=== PATIENT | female | born 1950 | race Caucasian/White ===

== ENCOUNTER → 2018-02-18 | Outpatient (REF) | payer MEDICARE ==
[2018-02-18 13:24] LABS: BASO % 0.5 % (0.0-1.0); EOS # 0.4 10^3/uL (0.0-0.50); EOS % 6.6 % (0.0-3.0); HEMATOCRIT 34.7 % (36.0-47.0); HEMOGLOBIN 11.3 g/dl (12.0-15.5); IMMATURE GRANULOCYTE % 0.2 % (0-3.0); LYMPH # 1.5 10^3/uL (1.5-4.5); MEAN CORPUSCULAR HEMOGLOBIN 32.8 pg (27.0-33.0); MEAN CORPUSCULAR HGB CONC 32.6 g/dl (32.0-36.5); MEAN CORPUSCULAR VOLUME 100.9 fl (80.0-96.0); MONO # 0.7 10^3/uL (0.0-0.8); MONO % 10.8 % (0.0-5.0); NEUTROPHILS # 3.5 10^3/uL (1.8-7.7); NEUTROPHILS % 56.9 % (36.0-66.0); PLATELET COUNT, AUTOMATED 183 10^3/uL (150-450); RED BLOOD COUNT 3.44 10^6/uL (4.00-5.40); RED CELL DISTRIBUTION WIDTH 12.5 % (11.5-14.5); WHITE BLOOD COUNT 6.1 10^3/uL (4.0-10.0)
[2018-02-18 13:39] LABS: FOLATE 17.4 NG/ML (>5.4); VITAMIN B12 LEVEL 530 PG/ML (247-911)
[2018-02-18 13:46] LABS: ALBUMIN 3.8 GM/DL (3.2-5.2); ALBUMIN/GLOBULIN RATIO 1.31 (1.00-1.93); ALKALINE PHOSPHATASE 58 U/L (45-117); ALT/SGPT 14 U/L (12-78); ANION GAP 8 MEQ/L (8-16); AST/SGOT 17 U/L (7-37); BILIRUBIN,TOTAL 0.2 MG/DL (0.2-1.0); BLOOD UREA NITROGEN 11 MG/DL (7-18); CALCIUM LEVEL 8.6 MG/DL (8.8-10.2); CARBON DIOXIDE LEVEL 26 MEQ/L (21-32); CHLORIDE LEVEL 103 MEQ/L (98-107); CREATININE FOR GFR 0.72 MG/DL (0.55-1.30); GLOMERULAR FILTRATION RATE > 60.0 (>45); GLUCOSE, FASTING 100 MG/DL (70-100); RHEUMATOID FACTOR QUANT < 10.0 IU/ML (<15.0); SODIUM LEVEL 137 MEQ/L (136-145); TOTAL PROTEIN 6.7 GM/DL (6.4-8.2)
[2018-02-18 14:33] LABS: ERYTHROCYTE SEDIMENTATION RATE 18 mm/hr (0-30)
[2018-02-22 00:06] LABS: Lyme Disease IgG/IgM Antibodie <0.91 ISR (0.00-0.90); Lyme Disease IgM Ab Quantitati <0.80 index (0.00-0.79)
[2018-02-22 09:51] LABS: DRVV SCREEN 69.6 SEC
[2018-02-22 09:52] LABS: PTT LUPUS TYPE ANTICOAG SCREEN 1.6 (0-1.2)
[2018-02-22 10:04] LABS: DRVV CONFIRM 39.6 SEC
[2018-02-22 14:14] LABS: ANTI DOUBLE STRAND-DNA AB 2 IU/mL (0-9); ANTINUCLEAR ANTIBODIES DIRECT Positive (Negative); CERULOPLASMIN 29.6 mg/dL (19.0-39.0); COPPER PLASMA 126 ug/dL (72-166); LEAD BLOOD ADULT 1 ug/dL (0-19); MERCURY LEVEL None Detected ug/L (0.0-14.9); RNP ANTIBODIES <0.2 AI (0.0-0.9); SJOGREN'S ANTI SS-A <0.2 AI (0.0-0.9); SJOGREN'S ANTI SS-B 1.1 AI (0.0-0.9); SMITH ANTIBODIES <0.2 AI (0.0-0.9); VITAMIN B1 LEVEL WHOLE BLOOD 157.4 nmol/L (66.5-200.0); VITAMIN B6,PYRIDOXAL PHOSPHATE 13.9 ug/L (2.0-32.8); VITAMIN E(ALPHA TOCOPHEROL) 12.1 mg/L (9.0-29.0); VITAMIN E(GAMMA TOCOPHEROL) 1.9 mg/L (0.5-4.9)
== END ==
LOC: M LABNEURO 11:08
DX: R25.1 Tremor, unspecified (principal); Z13.88 Encounter for screening for disorder due to exposure to contaminants
CPT/HCPCS: 82525

== ENCOUNTER → 2020-12-04 | Outpatient (CLI) | payer MEDICARE ==
[~2020-12-04] MED LIST: ALBU8.5H; AMIT100T; BABY81CH; BENI20TA11; DULO1CAP5; HYDR-3490; LEVO137T2; LEVO75TA2; LIPI10TA; LIPI20TA; LISI20TA5; LISI40TA4; OMEP-221; ONDA-1; PERC7.5T8; SIMV20TA22; SULF500T2; SULF50TA; ZEGERID; [UNRECOGNIZED DRUG - CODE]
== END ==
LOC: M LABSMTC 12:54
PROVIDERS: ATTEND Anesthesiology
DX: Z20.828 Contact with and (suspected) exposure to other viral communicable diseases (principal)

== ENCOUNTER 2020-12-09 10:46 | Day surgery (SDC) | payer MEDICARE ==
[~2020-12-09] VITALS: Ht 158.8 cm; Wt 91.2 kg
[~2020-12-09 10:46] MED LIST changes: +NS 1,000 ML IV ONE
[2020-12-09] MEDS ORDERED: CALCTAB89 PO (11:46)
[2020-12-09] MEDS ORDERED: VITA500C24 PO (11:46)
[2020-12-09] MEDS ORDERED: GARL1000 PO (11:46)
[2020-12-09] MEDS ORDERED: VITMTA PO (11:46)
--- NOTE | 2020-12-09 12:13 | ROOR ---
Patient Name: Vy Shetty Procedure Date: 12/09/2020 11:59 AM Date of : 1950 Age: 70 Room: [facility] Gender: Female Note Status: Finalized Procedure: Upper Endoscopy + Biopsies Indications: Heartburn, Exclusion of Salas's esophagus Providers: Lit Damon MD Referring MD: Haleigh Gomez Requestluis Provider: Medicines: Monitored Anesthesia Care Complications: No immediate complications. Procedure: Pre-Anesthesia Assessment: - The heart rate, respiratory rate, oxygen saturations, blood pressure, adequacy of pulmonary ventilation, and response to care were monitored throughout the procedure. The Endoscope was introduced through the mouth, and advanced to the second part of duodenum. The upper GI endoscopy was accomplished without difficulty. The patient tolerated the procedure well. Findings: The Z-line was irregular and was found 35 cm from the incisors. Multiple biopsies were obtained with cold forceps for evaluation to rule out Salas's Esophagus randomly at the gastroesophageal junction. A small hiatal hernia was present. Localized mildly erythematous mucosa without bleeding was found in the gastric antrum. Biopsies were taken with a cold forceps for Helicobacter pylori testing. The exam of the duodenum was otherwise normal. Impression: - Z-line irregular, 35 cm from the incisors. - Small hiatal hernia. - Erythematous mucosa in the antrum. Biopsied. - Multiple biopsies were obtained at the gastroesophageal junction. - The examination was otherwise normal. Recommendation: - Patient has a contact number available for emergencies. The signs and symptoms of potential delayed complications were discussed with the patient. Return to normal activities tomorrow. Written discharge instructions were provided to the patient. - High fiber diet. - Discharge patient to home. - Follow an antireflux regimen. - Continue present medications. - Await pathology results. - Telephone GI clinic for pathology results in 1 week. - Return to referring physician. - The findings and recommendations were discussed with the patient. Procedure Code(s): --- Professional --- 51984, Esophagogastroduodenoscopy, flexible, transoral; with biopsy, single or multiple Diagnosis Code(s): --- Professional --- K22.8, Other specified diseases of esophagus K44.9, Diaphragmatic hernia without obstruction or gangrene K31.89, Other diseases of stomach and duodenum R12, Heartburn CPT copyright 2019 [employer]. All rights reserved. The codes documented in this report are preliminary and upon power generation plant operator review may be revised to meet current compliance requirements. Lit Damon MD Lit Damon MD 12/09/2020 12:13:13 PM Electronically signed by Lit Damon MD Number of Addenda: 0 Note Initiated On: 12/09/2020 11:59 AM Estimated Blood Loss: Estimated blood loss: none.
--- NOTE | 2020-12-09 12:28 | ROOR ---
Patient Name: Vy Shetty Procedure Date: 12/09/2020 12:01 PM Date of : 1950 Age: 70 Room: [id number] Gender: Female Note Status: Finalized Procedure: Total Colonoscopy to Cecum Indications: Colon cancer screening in patient at increased risk: Colorectal cancer in father Providers: Lit Damon MD Referring MD: Haleigh Gomez Requesting Provider: Medicines: Monitored Anesthesia Care Complications: No immediate complications. Procedure: Pre-Anesthesia Assessment: - The heart rate, respiratory rate, oxygen saturations, blood pressure, adequacy of pulmonary ventilation, and response to care were monitored throughout the procedure. The Colonoscope was introduced through the anus and advanced to the cecum, identified by appendiceal orifice and ileocecal valve. The colonoscopy was performed without difficulty. The patient tolerated the procedure well. The quality of the bowel preparation was good. Findings: The perianal and digital rectal examinations were normal. Non-bleeding internal hemorrhoids were found during retroflexion. The hemorrhoids were small and Grade I (internal hemorrhoids that do not prolapse). No other significant abnormalities were identified in a careful examination of the remainder of the colon. The exam was otherwise without abnormality on direct and retroflexion views. Impression: - Non-bleeding internal hemorrhoids. - The examination was otherwise normal on direct and retroflexion views. - No specimens collected. - The exam was otherwise normal to the cecum. Recommendation: - Patient has a contact number available for emergencies. The signs and symptoms of potential delayed complications were discussed with the patient. Return to normal activities tomorrow. Written discharge instructions were provided to the patient. - High fiber diet. - Discharge patient to home. - Continue present medications. - Await pathology results. - Telephone GI clinic for pathology results in 1 week. - Return to referring physician. - Repeat colonoscopy in 5 years for screening purposes. - The findings and recommendations were discussed with the patient. Procedure Code(s): --- Professional --- 76515, Colonoscopy, flexible; diagnostic, including collection of specimen(s) by brushing or washing, when performed (separate procedure) Diagnosis Code(s): --- Professional --- Z80.0, Family history of malignant neoplasm of digestive organs K64.0, First degree hemorrhoids CPT copyright 2019 [employer] [place] [employer]. All rights reserved. The codes documented in this report are preliminary and upon retort furnace helper review may be revised to meet current compliance requirements. Lit Damon MD Lit Damon MD 12/09/2020 12:27:39 PM Electronically signed by Lit Damon MD Number of Addenda: 0 Note Initiated On: 12/09/2020 12:01 PM Estimated Blood Loss: Estimated blood loss: none.
[2020-12-09 12:55] VITALS: BP 133/72
[2020-12-09] MEDS ORDERED: NS 1,000 ML IV ONE (13:15)
== END 2020-12-09 13:06 | disposition home or self-care (01) ==
LOC: M OPP 10:46
PROVIDERS: ATTEND Internal Medicine Gastroenterology
DX: Z12.11 Encounter for screening for malignant neoplasm of colon (principal); Z80.0 Family history of malignant neoplasm of digestive organs; R12 Heartburn; K64.0 First degree hemorrhoids; D13.1 Benign neoplasm of stomach; K44.9 Diaphragmatic hernia without obstruction or gangrene; K22.8 Other specified diseases of esophagus; K31.89 Other diseases of stomach and duodenum; I10 Essential (primary) hypertension; E03.9 Hypothyroidism, unspecified; M19.90 Unspecified osteoarthritis, unspecified site; F41.9 Anxiety disorder, unspecified; F32.9 Major depressive disorder, single episode, unspecified; J44.9 Chronic obstructive pulmonary disease, unspecified; Z87.891 Personal history of nicotine dependence; Z88.1 Allergy status to other antibiotic agents; Z88.5 Allergy status to narcotic agent; Z88.6 Allergy status to analgesic agent; Z88.8 Allergy status to other drugs, medicaments and biological substances; Z91.041 Radiographic dye allergy status; Z79.82 Long term (current) use of aspirin; Z79.899 Other long term (current) drug therapy
CPT/HCPCS: 43239; 88305; G0121